=== PATIENT | male | born 1955 | race Caucasian/White ===

== ENCOUNTER 2024-03-31 11:46 | Emergency (ER) | payer MEDICARE, OTHER, SELFPAY ==
[2024-03-31 11:52] VITALS: BP 180/90
[2024-03-31 12:39] VITALS: BP 174/84
--- NOTE | 2024-03-31 12:39 | ED.CVA ---
History of Present Illness
General
Chief Complaint: CVA/TIA Symptoms
Time Seen by Provider: 03/31/24 12:05
Onset of Stroke Symptoms
Onset of symptoms known: Yes
Date of onset of symptoms: 03/29/24
History of Present Illness
History of Present Illness:
69-year-old male with history of hypertension presenting to the emergency department for concern of right-sided facial weakness and drooping. Patient reports that on Sunday, he noticed some irritation to his right eye. The following day, was doing
some yard work and felt weakness to the right side of the face. He has since had issues shutting his eye. He notes that the entire right side of the face is affected. Denies weakness or sensory deficits to extremities. Denies headache or visual
changes. Denies fever or systemic symptoms. Denies any history of stroke in the past. Denies any recent illness. Denies additional acute medical complaints
Phy Exam
Physical Exam
Physical Exam:
General: Well-appearing, no clinical signs of dehydration, nontoxic and in no acute distress
HEENT: protecting airway
Neck: appears supple
CV: Normal heart rate, regular rhythm, no evidence of cyanosis
Resp: No accessory muscle use, no increased work of breathing, lungs clear to auscultation bilaterally
Abd: Soft and non-distended, no tenderness to palpation, normal bowel sounds
Extremities: No deformities, no swelling, no erythema, pulses and sensation intact
Neuro: alert, moderate paralysis to entire right side of the face with forehead included. Strength and sensation equal to bilateral extremities. Normal speech.
: deferred
Rectal: deferred
Psych: Normal affect
Skin: Intact
Scores
NIH Stroke Score
Level of Consciousness: 0 - Alert
LOC Questions: 0-Answers both correctly
LOC Commands: 0-Performs both correctly
Best Horizontal Gaze: 0-Normal
Visual [place]: 0=Normal, no visual loss
Facial Palsy: 2=Partial paralysis
Motor - Right Arm: 0=No drift 10 seconds
Motor - Left Arm: 0=No drift 10 seconds
Motor - Right Le-No drift 5 seconds
Motor - Left Le-No drift 5 seconds
Limb Ataxia: 0-Absent
Sensation: 0-Normal
Best Language: 0-No aphasia
Dysarthria: 0-Normal
Extinction and Inattention: 0-No abnormality
Total Score:: 2
Course
Orders/Labs/Results
Orders:
Orders
03/31/24 12:26
CT Head W/o Iv Contrast Urgent
Comment:
Reason For Exam: right facial droop, suspected bells palsy
03/31/24 14:46
Lyme PCR, DNA [S] Urgent
Vital Signs
Initial and Last Documented VS:
Initial Vital Signs
Temp Pulse Resp BP Pulse Ox
98.7 F 61 20 180/90 97
03/31/24 11:52 03/31/24 11:52 03/31/24 11:52 03/31/24 11:52 03/31/24 11:52
Last Documented Vital Signs
Temp Pulse Resp BP Pulse Ox
98.7 F 54 13 162/91 97
03/31/24 11:52 03/31/24 13:01 03/31/24 13:01 03/31/24 13:00 03/31/24 11:52
MDM/Problems Addressed
MDM/Problems Addressed:
69-year-old male with history of hypertension presenting for right-sided facial paralysis. Vital signs on arrival are significant for high blood pressure.
On exam patient well-appearing, no acute distress or discomfort. Patient does have obvious right-sided facial paralysis, with forehead included. 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 NIH stroke scale is a 2 for facial paralysis,
however no indication for tPA given onset of symptoms and suspicion for Kern's palsy. Lower suspicion for acute central neurologic process. Will screen with CT brain imaging.
15:00 - CT is negative, as expected. Given facial involvement and severity, will start on steroids and antivirals. Otherwise feel stable for discharge. Lyme titer sent however, patient denies any viral type symptoms, no systemic rash. Will also
prescribe eyedrops and provide eyepatch. Return precautions discussed and patient verbalized understand
*Critical Care Note
Total Time (30-74mins, 75-104mins- exclusive of procedures): Not Applicable
ED Attending Note
-
Portions of this chart may have been created with voice recognition software.� Occasional wrong word or��sound alike� substitutions may have occurred due to the inherent limitations of voice recognition software.
Discharge Plan
Departure
Referrals:
Branden Burr MD [Family Provider] -
Interventions
Interventions:
*Risk Screen - Suicide Last Done: 03/31/24 11:47
*General Assessment Last Done: 03/31/24 13:02
*Neglect/Abuse Screening Last Done: 03/31/24 11:57
ED- Fall Risk Assessment Last Done: 03/31/24 13:02
*ED COVID-19 Vaccine History Last Done: 03/31/24 13:02
ED- Pulmonary Assessment Last Done: 03/31/24 13:02
ED- Neurological Assessment Last Done: 03/31/24 13:02
ED- Cardiac Assessment Last Done: 03/31/24 13:02
ED Swallowing Screen Last Done: 03/31/24 13:02
Discharge Date and Time
Print Language: MALAGASY
[2024-03-31 13:00] VITALS: BP 162/91
[2024-03-31 13:02] VITALS: BMI 34.4
[2024-03-31] MEDS: DELTASONE 60 MG PO (15:30)
[2024-03-31] MEDS: VALTREX 1000 MG PO (15:30)
[2024-03-31 15:33] VITALS: BP 158/82
[2024-04-03 15:39] LABS: Lyme Antibody Screen, EIA Negative (Negative)
== END 2024-03-31 15:34 | disposition home or self-care (01) ==
LOC: EMR 11:46
PROVIDERS: EMERGENCY PHYSICIAN Student in an Organized Health Care Education/Training Program; FAMILY PHYSICIAN Family Medicine
DX: G51.0 Bell's palsy (principal); I10 Essential (primary) hypertension
CPT/HCPCS: 99284; 70450; 86618